=== PATIENT | male | born 1950 | race Caucasian/White ===

== ENCOUNTER 2018-04-01 20:37 | Emergency (ER) | payer OTHER, BC ==
[2018-04-01] MEDS ORDERED: NA CHLORIDE 0.9% 1,000 ML ONE (21:57)
[2018-04-01 22:24] LABS: Absolute Lymphocytes (CBC) 1.1 K/uL (0.7-4.9); Absolute Monocytes 1.5 K/uL (0.1-1.3); Absolute Neutrophil 12.2 K/uL (1.8-8.0); Basophils % 0.5 % (0-1.3); Hematocrit 47.2 % (39.6-49.0); Lymphocytes % 7.3 % (15.3-44.8); MCH 28.4 pg (27.0-35.0); MPV 8.5 fL (7.6-11.3); Monocytes % 9.9 % (3.3-12.3); RBC Red Blood Cell Count 5.48 M/uL (4.33-5.43)
[2018-04-01 22:31] LABS: Potassium 3.7 mEq/L (3.6-5.0)
--- NOTE | 2018-04-01 22:58 | RAD REPORT ---
EXAM DESCRIPTION: RAD - Ankle Right 3 View - 04/01/2018 10:47 pm CLINICAL HISTORY: Ankle pain and swelling. COMPARISON: 12/11/2015 FINDINGS: Evidence of previous ankle trauma is noted with fusion hardware present in the midfoot. So ft tissue swelling is seen about the ankle. Prominent posterior and plantar calcaneal spurs are seen. No acute fracture or hardware abnormality evident.
--- NOTE | 2018-04-01 23:09 | RAD REPORT ---
EXAM DESCRIPTION: VAS - Extremity Venous Uni Ltd - 04/01/2018 10:56 pm CLINICAL HISTORY: Leg swelling and edema. COMPARISON: None. FINDINGS: Right lower extremity venous system was interrogated with Doppler technique. Normal flow, compressibility and augmentation was noted. There is no DVT present. IMPRESSION: No evidence of right lower extremity deep venous thrombosis.
[2018-04-01 23:28] LABS: Urine Blood 1+ (NEG); Urine Glucose 2+ (NEG); Urine Protein TRACE (NEG); Urine pH 5.5 (5.0-7.0)
[2018-04-01] MEDS ORDERED: CIPROFLOXACIN 400mg IV 400 MG/200 ML BAG IV ONE (23:56)
--- NOTE | 2018-04-02 00:21 | EDPHYS ---
Physician Documentation [facility] Name: Jeff Sweeney Age: 67 yrs Sex: Male : 1950 Arrival Date: 04/01/2018 Time: 20:37 Bed 25 Private MD: ED Physician Qamar Sims HPI: 04/01 22:39 This 67 yrs old Male presents to ER via Ambulatory with complaints of Doesn't snw Feel Right. 22:39 The patient presents to the emergency department with diarrhea. Onset: The snw symptoms/episode began/occurred suddenly, 2 day(s) ago. Possible causes: unknown. The symptoms are aggravated by nothing. Associated signs and symptoms: Pertinent positives: diarrhea, swelling to right lower extremity. Severity of symptoms: At their worst the symptoms were moderate. The patient has not experienced similar symptoms in the past. The patient has not recently seen a physician, the patient's primary care provider is Dr. Dr. Vizcarra. pt states he has had diarrhea x 2 days with high fever. Spouse states pt's right lower extremity has been swelling and is more erythematous than is normal for him. Historical: - Allergies: 20:51 PENICILLINS; aj - Home Meds: 20:51 Lantus 100 unit/mL Sub-Q soln [Active]; Humalog 100 unit/mL Sub-Q soln [Active]; aj Synjardy 5-1,000 mg oral tab 1 tab 2 times per day [Active]; losartan-hydrochlorothiazide 100-25 mg oral tab 1 tab once daily [Active]; Bystolic 20 mg oral tab 1 tab once daily [Active]; - PMHx: 20:51 Diabetes - IDDM; Hypertension; aj - PSHx: 20:51 foot; aj - Immunization history:: Adult Immunizations up to date. - Social history:: Smoking status: Patient/guardian denies using tobacco. ROS: 22:39 Eyes: Negative for injury, pain, redness, and discharge, ENT: Negative for injury, snw pain, and discharge, Neck: Negative for injury, pain, and swelling, Cardiovascular: Negative for chest pain, palpitations, and edema, Respiratory: Negative for shortness of breath, cough, wheezing, and pleuritic chest pain. 22:39 Back: Negative for injury and pain, : Negative for injury, bleeding, discharge, and swelling, Neuro: Negative for headache, weakness, numbness, tingling, and seizure. 22:39 Constitutional: Positive for body aches, chills, fatigue, fever, malaise, poor PO intake. 22:39 Abdomen/GI: Positive for diarrhea. 22:39 MS/extremity: Positive for erythema, swelling, of the right foot, previous fracture of foot and fusing per pt. . 22:39 Skin: Positive for erythema, of the right foot. Exam: 22:44 Head/Face: Normocephalic, atraumatic. Eyes: Pupils equal round and reactive to light, snw extra-ocular motions intact. Lids and lashes normal. Conjunctiva and sclera are non-icteric and not injected. Cornea within normal limits. Periorbital areas with no swelling, redness, or edema. ENT: Nares patent. No nasal discharge, no septal abnormalities noted. Tympanic membranes are normal and external auditory canals are clear. Oropharynx with no redness, swelling, or masses, exudates, or evidence of obstruction, uvula midline. Mucous membranes moist. Neck: Trachea midline, no thyromegaly or masses palpated, and no cervical lymphadenopathy. Supple, full range of motion without nuchal rigidity, or vertebral point tenderness. No Meningismus. Chest/axilla: Normal chest wall appearance and motion. Nontender with no deformity. No lesions are appreciated. Cardiovascular: Regular rate and rhythm with a normal S1 and S2. No gallops, murmurs, or rubs. Normal PMI, no JVD. No pulse deficits. Respiratory: Lungs have equal breath sounds bilaterally, clear to auscultation and percussion. No rales, rhonchi or wheezes noted. No increased work of breathing, no retractions or nasal flaring. 22:44 Back: No spinal tenderness. No costovertebral tenderness. Full range of motion. Neuro: Awake and alert, GCS 15, oriented to person, place, time, and situation. Cranial nerves II-XII grossly intact. Motor strength 5/5 in all extremities. Sensory grossly intact. Cerebellar exam normal. Normal gait. Psych: Awake, alert, with orientation to person, place and time. Behavior, mood, and affect are within normal limits. 22:44 Constitutional: The patient appears alert, awake, uncomfortable. 22:44 Abdomen/GI: Inspection: obese Bowel sounds: normal, Palpation: abdomen is soft and non-tender, in all quadrants. 22:44 Musculoskeletal/extremity: Extremities: noted in the right foot: erythema, ROM: area fused, Circulation is intact in all extremities. diabetic neuropathy Compartment Syndrome exam of affected extremity: is normal. 22:44 Skin: Appearance: Color: normal in color, swelling, that are moderate, to right lower extremity, foot with erythema, peeling around medial callus, no obvious break in the skin. Vital Signs: 20:51 BP 156 / 87; Pulse 92; Resp 18; Temp 99.2; Pulse Ox 100% on R/A; Weight 111.13 kg; aj Height 6 ft. 0 in. (182.88 cm); Pain 2/10; 21:54 BP 133 / 89; Pulse 90; Resp 18; Pulse Ox 100% on R/A; kr2 23:00 BP 132 / 74; Pulse 85; Resp 18; Pulse Ox 98% on R/A; kr2 04/02 00:04 BP 145 / 67; Pulse 77; Resp 15; Pulse Ox 98% on R/A; kr2 01:04 BP 138 / 61; Pulse 78; Resp 17; Pulse Ox 99% on R/A; rk2 04/01 20:51 Body Mass Index 33.23 (111.13 kg, 182.88 cm) aj MDM: 04/01 21:55 Patient medically screened. snw 04/02 00:22 Data reviewed: vital signs, nurses notes. Data interpreted: Pulse oximetry: on room air snw is 98 %. Interpretation: normal. Counseling: I had a detailed discussion with the patient and/or guardian regarding: the historical points, exam findings, and any diagnostic results supporting the discharge/admit diagnosis, the presence of at least one elevated blood pressure reading (>120/80) during this emergency department visit, lab results, radiology results, the need for outpatient follow up, to return to the emergency department if symptoms worsen or persist or if there are any questions or concerns that arise at home. Special discussion: Based on the patient's Hx, exam, and Dx evaluation, there is no indication for emergent surgery or inpatient Tx. It is understood by the patient/guardian that if the Sx's persist or worsen they need to return immediately for re-evaluation. I have referred the patient to see his PCP for further evaluation of high blood pressure. Based on the history and exam findings, there is no indication for further emergent testing or inpatient evaluation. I discussed with the patient/guardian the need to see the primary care provider for further evaluation of the symptoms. 04/01 21:56 Order name: Lipase; Complete Time: 22:36 snw 04/01 21:56 Order name: Basic Metabolic Panel; Complete Time: 22:36 snw 04/01 21:56 Order name: CBC with Diff; Complete Time: 22:36 snw 04/01 21:56 Order name: Urine Microscopic Only; Complete Time: 00:39 snw 04/01 22:06 Order name: US Extremity Venous Uni Ltd; Complete Time: 23:13 snw 04/01 23:10 Order name: Urine Dipstick--Ancillary (enter results); Complete Time: 23:31 rg2 04/01 21:56 Order name: IV Saline Lock; Complete Time: 22:16 snw 04/01 21:56 Order name: Labs collected and sent; Complete Time: 22:17 snw 04/01 21:56 Order name: Urine Dipstick-Ancillary (obtain specimen); Complete Time: 23:09 snw 04/01 22:06 Order name: Ankle Right 3 View XRAY; Complete Time: 23:13 snw Administered Medications: Discontinued: NS 0.9% 1000 ml IV at 125 ml/hr continuous 04/01 22:16 Drug: NS 0.9% 1000 ml Route: IV; Rate: 125 ml/hr; Site: right forearm; kr2 04/02 00:30 Follow up: IV Status: Order to discontinue infusion kr2 01:05 Follow up: Response: No adverse reaction; IV Status: Completed infusion rk2 00:01 Drug: NS 0.9% 1000 ml Route: IV; Rate: 1 bolus; Site: right antecubital; kr2 01:05 Follow up: IV Status: Completed infusion rk2 00:01 Drug: Cipro 400 mg Volume: 200 ml; Route: IVPB; Infused Over: 60 mins; Site: right kr2 antecubital; 01:04 Follow up: Response: No adverse reaction; IV Status: Completed infusion rk2 Disposition: 08:18 Co-signature as Attending Physician, Qamar Sims MD I agree with the assessment and musa plan of care. Disposition: 04/02/18 00:20 Discharged to Home. Impression: Diarrhea, unspecified, Cellulitis of right lower limb. - Condition is Stable. - Discharge Instructions: Food Choices to Help Relieve Diarrhea, Adult, Cellulitis, Diabetes and Sick Day Management, Diarrhea, Heat Therapy. - Prescriptions for Cipro 500 mg Oral Tablet - take 1 tablet by ORAL route every 12 hours for 10 days; 20 tablet. Zofran 4 mg Oral Tablet - take 1 tablet by ORAL route every 8 hours As needed; 20 tablet. - Medication Reconciliation Form, Thank You Letter, Antibiotic Education, Prescription Opioid Use form. - Follow up: Private Physician; When: Tomorrow; Reason: Recheck today's complaints, Continuance of care, Re-evaluation by your physician. Follow up: Emergency Department; When: As needed; Reason: Worsening of condition. Signatures: Dispatcher [employer] EDAliza Blum, RN RN Qamar Lance MD MD cha Therrien, Shelly, SEMICONDUCTOR WAFERS ETCH OPERATOR-C SEMICONDUCTOR WAFERS ETCH OPERATOR-Csnw Jennifer Kirkpatrick RN RN kr2 Deb Melgar RN RN rk2 Corrections: (The following items were deleted from the chart) 01:07 00:20 04/02/2018 00:20 Discharged to Home. Impression: Diarrhea, unspecified; rk2 Cellulitis of right lower limb. Condition is Stable. Forms are Medication Reconciliation Form, Thank You Letter, Antibiotic Education, Prescription Opioid Use. Follow up: Private Physician; When: Tomorrow; Reason: Recheck today's complaints, Continuance of care, Re-evaluation by your physician. Follow up: Emergency Department; When: As needed; Reason: Worsening of condition. snw
--- NOTE | 2018-04-02 00:21 | ER ---
Nurse's Notes [facility] Name: Jeff Sweeney Age: 67 yrs Sex: Male : 1950 Arrival Date: 04/01/2018 Time: 20:37 Bed 25 Private MD: Diagnosis: Diarrhea, unspecified;Cellulitis of right lower limb Presentation: 04/01 20:47 Presenting complaint: Patient states: Fatigue, fever, diarrhea (resolved), body aches aj for 2 days. Transition of care: patient was not received from another setting of care. Onset of symptoms was March 30, 2018. Initial Sepsis Screen: Does the patient meet any 2 criteria? No. Patient's initial sepsis screen is negative. Does the patient have a suspected source of infection? No. Patient's initial sepsis screen is negative. Care prior to arrival: None. 20:47 Method Of Arrival: Ambulatory aj 20:47 Acuity: LAUREN 3 aj Triage Assessment: 20:51 General: Appears in no apparent distress. comfortable, Behavior is calm, cooperative, aj appropriate for age. Pain: Complains of pain in body aches Pain currently is 1 out of 10 on a pain scale. Neuro: Level of Consciousness is awake, alert, obeys commands, Oriented to person, place, time, situation. Neuro:. Respiratory: Airway is patent Respiratory effort is even, unlabored, Respiratory pattern is regular, symmetrical. Derm: Skin is intact, is healthy with good turgor, Skin is pink, warm \T\ dry. normal. Historical: - Allergies: 20:51 PENICILLINS; aj - Home Meds: 20:51 Lantus 100 unit/mL Sub-Q soln [Active]; Humalog 100 unit/mL Sub-Q soln [Active]; aj Synjardy 5-1,000 mg oral tab 1 tab 2 times per day [Active]; losartan-hydrochlorothiazide 100-25 mg oral tab 1 tab once daily [Active]; Bystolic 20 mg oral tab 1 tab once daily [Active]; - PMHx: 20:51 Diabetes - IDDM; Hypertension; aj - PSHx: 20:51 foot; aj - Immunization history:: Adult Immunizations up to date. - Social history:: Smoking status: Patient/guardian denies using tobacco. Screenin:56 Abuse screen: Denies threats or abuse. Denies injuries from another. Nutritional kr2 screening: No deficits noted. Tuberculosis screening: No symptoms or risk factors identified. Fall Risk None identified. Assessment: 21:54 General: Appears in no apparent distress. comfortable, Behavior is calm, cooperative, kr2 appropriate for age. Pain: Denies pain. Neuro: Level of Consciousness is awake, alert, obeys commands, Oriented to person, place, time, situation. Neuro: Reports. Cardiovascular: Capillary refill < 3 seconds in bilateral fingers Patient's skin is warm and dry. Respiratory: Airway is patent Respiratory effort is even, unlabored, Respiratory pattern is regular, symmetrical. GI: Abdomen is round non-distended, Reports diarrhea, nausea. : No signs and/or symptoms were reported regarding the genitourinary system. EENT: Nares are clear bilaterally Oral mucosa is moist. Derm: Skin is intact, is healthy with good turgor, Skin is pink, warm \T\ dry. Musculoskeletal: Circulation, motion, and sensation intact. Reports leg cramps-taking HCTZ. 23:00 Reassessment: Patient appears in no apparent distress at this time. Patient and/or kr2 family updated on plan of care and expected duration. Pain level reassessed. Patient is alert, oriented x 3, equal unlabored respirations, skin warm/dry/pink. Patient denies pain at this time. 04/02 00:06 Reassessment: Patient appears in no apparent distress at this time. Patient and/or kr2 family updated on plan of care and expected duration. Pain level reassessed. Patient is alert, oriented x 3, equal unlabored respirations, skin warm/dry/pink. Patient denies pain at this time. Vital Signs: 04/01 20:51 BP 156 / 87; Pulse 92; Resp 18; Temp 99.2; Pulse Ox 100% on R/A; Weight 111.13 kg; aj Height 6 ft. 0 in. (182.88 cm); Pain 2/10; 21:54 BP 133 / 89; Pulse 90; Resp 18; Pulse Ox 100% on R/A; kr2 23:00 BP 132 / 74; Pulse 85; Resp 18; Pulse Ox 98% on R/A; kr2 04/02 00:04 BP 145 / 67; Pulse 77; Resp 15; Pulse Ox 98% on R/A; kr2 01:04 BP 138 / 61; Pulse 78; Resp 17; Pulse Ox 99% on R/A; rk2 04/01 20:51 Body Mass Index 33.23 (111.13 kg, 182.88 cm) ED Course: 04/01 20:37 Patient arrived in ED. am2 20:48 Triage completed. aj 20:51 Arm band placed on right wrist. Patient placed in waiting room, Patient notified of wait time. 21:38 Jennifer Kirkpatrick RN is Primary Nurse. kr2 21:55 Ashlyn Bates FNP-C is PHCP. snw 21:55 Qamar Sims MD is Attending Physician. snw 21:56 Patient has correct armband on for positive identification. Bed in low position. Call kr2 light in reach. Side rails up X 1. Adult w/ patient. Pulse ox on. NIBP on. Door closed. Head of bed elevated. 22:05 Inserted saline lock: 22 gauge in right forearm, using aseptic technique. Blood kr2 collected. 22:43 X-ray completed. Portable x-ray completed in exam room. Patient tolerated procedure kc2 well. 22:46 Ankle Right 3 View XRAY In Process Unspecified. EDMS 22:57 US Extremity Venous Uni Ltd In Process Unspecified. EDMS 22:57 Ultrasound completed. Patient tolerated well. 04/02 00:59 Primary Nurse role handed off by Jennifer Kirkpatrick, RN rg2 01:06 No provider procedures requiring assistance completed. IV discontinued. rk2 Administered Medications: Discontinued: NS 0.9% 1000 ml IV at 125 ml/hr continuous 04/01 22:16 Drug: NS 0.9% 1000 ml Route: IV; Rate: 125 ml/hr; Site: right forearm; kr2 04/02 00:30 Follow up: IV Status: Order to discontinue infusion kr2 01:05 Follow up: Response: No adverse reaction; IV Status: Completed infusion rk2 00:01 Drug: NS 0.9% 1000 ml Route: IV; Rate: 1 bolus; Site: right antecubital; kr2 01:05 Follow up: IV Status: Completed infusion rk2 00:01 Drug: Cipro 400 mg Volume: 200 ml; Route: IVPB; Infused Over: 60 mins; Site: right kr2 antecubital; 01:04 Follow up: Response: No adverse reaction; IV Status: Completed infusion rk2 Outcome: 00:20 Discharge ordered by MD. villatoro 01:06 Discharged to home ambulatory. rk2 01:06 Condition: good 01:06 Discharge instructions given to patient, Prescriptions given X 2. 01:07 Patient left the ED. rk2 Signatures: Dispatcher [employer] EDMS Damien Blake rg2 Aliza Mazariegos, RN RN Ashlyn Odom, AQUATIC PERFORMER-C AQUATIC PERFORMER-Csnw Nathaly Mccarthy kc2 Aliza Valenzuela am2 Jennifer Kirkpatrick, RN RN kr2 Kristin Liu Rhonda RN RN rk2
[2018-04-02 00:28] LABS: Urine Bacteria <20 /HPF (NONE SEEN); Urine Culture Reflex Order NOT NEEDED
[2018-04-02 00:29] LABS: Urine Coarse Granular Casts 0-5 /LPF (NONE SEEN); Urine RBC <5 /HPF (NONE SEEN)
== END 2018-04-02 01:07 | disposition home or self-care (01) ==
LOC: ER 20:37
DX: L03.115 Cellulitis of right lower limb (principal); R19.7 Diarrhea, unspecified; E11.9 Type 2 diabetes mellitus without complications; I10 Essential (primary) hypertension; Z79.4 Long term (current) use of insulin
CPT/HCPCS: 36415; 80048; 81003; 81015; 83690; 85025; 93971; 96361; 96365; 99284; J0744; J7030

== ENCOUNTER 2018-04-02 13:39 | Inpatient (IN) | payer OTHER, BC ==
--- OUTSIDE RECORDS SUMMARY | 2018-04-02 14:01 | XMS REPORT | Clinical Summary ---
:1950 Author Organization [facility] Address [address] [place] [address] Care Team Providers Name Role Phone Jaime Gotti Primary Care Provider Allergies Active Allergy Reactions Severity Noted Date Comments Penicillins Hives 04/25/2016 Current Medications Prescription Sig. Disp. Refills Start End Status Date Date HUMALOG KWIKPEN 100 INJECT 8 UNITS 3 07/05/20 Active unit/mL insulin pen TID BY 16 SUBCUTANEOUS ROUTE BEFORE MEALS TID FOR 90 DAYS nebivolol (BYSTOLIC) 20 Take 20 mg by 04/16/20 Active mg tablet mouth nightly. 17 empagliflozin-metformin Take 1 tablet by 04/09/20 Active (SYNJARDY) 5-1,000 mg mouth 2 (two) 17 tablet times a day with meals. DOCOSAHEXANOIC ACID/EPA Take by mouth. Active (FISH OIL ORAL) ascorbic acid, vitamin Take 1,000 mg by Active C, (vitamin C) 1000 MG mouth daily. tablet cholecalciferol, Take 2,000 Units Active vitamin D3, (VITAMIN by mouth daily. D3) 2,000 unit capsule capsule aspirin (ECOTRIN) 81 MG Take 81 mg by Active enteric coated tablet mouth daily. LANTUS SOLOSTAR 100 INJECT 24 UNITS 45 mL 3 06/30/20 Active unit/mL injection (pen) EVERY DAY BY 17 SUBCUTANEOUS ROUTE EVERY NIGHT AT BEDTIME FOR 90 DAYS HUMALOG KWIKPEN 100 INJECT 16 UNITS 45 mL 0 09/06/20 Active unit/mL injection pen THREE TIMES 17 DAILY BY SUBCUTANEOUS ROUTE BEFORE MEALS FOR 90 DAYS losartan (COZAAR) 100 TAKE 1 TABLET BY 90 tablet 0 09/06/20 Active MG tablet MOUTH EVERY DAY 17 IN THE MORNING losartan (COZAAR) 100 TAKE 1 TABLET BY 90 tablet 0 09/06/20 Active MG tablet MOUTH EVERY DAY 17 IN THE MORNING hydroCHLOROthiazide TAKE 1 TABLET BY 90 tablet 0 09/08/20 Active (HYDRODIURIL) 25 MG MOUTH EVERY DAY 17 tablet IN THE MORNING atenolol (TENORMIN) 50 TK 1 T PO QAM 2 08/02/20 Discontinued MG tablet 16 017 losartan (COZAAR) 100 TK 1 T PO QD IN 2 09/05/20 Discontinued MG tablet THE MORNING 16 017 LANTUS SOLOSTAR 100 INJECT 24 UNITS 3 09/03/20 Discontinued unit/mL (3 mL) insulin QD BY 16 017 pen SUBCUTANEOUS ROUTE QHS FOR 90 DAYS metFORMIN XR TK 2 TS PO BID 3 08/02/20 Discontinued (GLUCOPHATE-XR) 500 MG WC 16 017 24 hr tablet BYDUREON 2 mg INJECT 2 MG Q 3 08/02/20 Discontinued suspension,extended rel WEEK BY 16 017 recon SUBCUTANEOUS ROUTE IN THE MORNING FOR 91 DAYS hydrochlorothiazide TK 1 T PO QD IN 3 08/02/20 Discontinued (HYDRODIURIL) 25 MG THE MORNING 16 017 tablet hydroCHLOROthiazide Take 1 tablet by 02/17/20 Discontinued (HYDRODIURIL) 25 MG mouth daily. 17 017 tablet insulin GLARGINE Inject 26 Units 02/26/20 Discontinued (LANTUS SOLOSTAR) 100 under the skin 17 017 unit/mL injection (pen) nightly. losartan (COZAAR) 100 Take 1 tablet by 02/18/20 Discontinued MG tablet mouth daily. 17 017 losartan (COZAAR) 100 TAKE 1 TABLET BY 90 tablet 0 05/30/20 Discontinued MG tablet MOUTH EVERY DAY 17 017 IN THE MORNING bacitracin ointment Apply topically 28 g 0 06/03/20 Discontinued 2 (two) times a 17 017 day for 30 days. clindamycin (CLEOCIN) Take 1 capsule 15 capsule 0 06/03/20 Discontinued 300 MG capsule (300 mg total) 17 017 by mouth 3 (three) times a day for 5 days. keTOROlac (TORadol) 10 Take 1 tablet 20 tablet 0 06/03/20 Discontinued mg tablet (10 mg total) by 17 017 mouth every 6 (six) hours as needed for moderate pain for up to 4 days. acetaminophen-codeine Take 1 tablet by 30 tablet 0 06/03/20 Discontinued (TYLENOL WITH CODEINE mouth every 4 17 017 #3) 300-30 mg per (four) hours as tablet needed for moderate pain for up to 10 days. clindamycin (CLEOCIN) Take 1 capsule 15 capsule 0 06/03/20 300 MG capsule (300 mg total) 17 017 by mouth 3 (three) times a day for 5 days. acetaminophen-codeine Take 1 tablet by 30 tablet 0 06/03/20 (TYLENOL WITH CODEINE mouth every 4 17 017 #3) 300-30 mg per (four) hours as tablet needed for moderate pain for up to 10 days. keTOROlac (TORadol) 10 Take 1 tablet 20 tablet 0 06/03/20 mg tablet (10 mg total) by 17 017 mouth every 6 (six) hours as needed for moderate pain for up to 4 days. bacitracin ointment Apply topically 28 g 0 06/03/20 2 (two) times a 17 017 day for 30 days. clindamycin (CLEOCIN) Take 1 capsule 15 capsule 0 06/30/20 300 MG capsule (300 mg total) 17 017 by mouth 3 (three) times a day for 5 days. acetaminophen-codeine Take 1 tablet by 28 tablet 0 06/30/20 (TYLENOL WITH CODEINE mouth every 6 17 017 #3) 300-30 mg per (six) hours as tablet needed for moderate pain for up to 7 days. sodium chloride (OCEAN 2 sprays into 30 mL 0 06/30/20 NASAL) 0.65 % nasal each nostril 4 17 017 spray (four) times a day for 7 days. 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 Night sweats 09/18/2016 Encounters Date Type Specialty Care Team Description 09/10/2017 Documentation Endocrinology Wilma Valenzuela MA 09/10/2017 Orders Only Endocrinology Wilma Valenzuela MA 09/06/2017 Refill Ghulam Mora MD 09/05/2017 Refill Ghulam Mora MD 09/01/2017 Refill Ghulam Mora MD 08/30/2017 Refill Ghulam Mora MD 08/12/2017 Refill Ghulam Mora MD 06/30/2017 Hospital Encounter Plastic Surgery Maria Elena Manzo Basal cell MD Ivan carcinoma 06/30/2017 Anesthesia Event Plastic Surgery Zeus Yang MD 06/30/2017 Refill Ghulam Mora MD 06/30/2017 Procedure Pass Plastic Surgery 06/30/2017 Surgery Plastic Surgery Maria Elena Manzo COMPLEX WOUND MD Ivan CLOSURE, TAKEDOWN OF PERIMEDIAN FOREHEAD FLAP; division of septal flap 2017 Patient Outreach Quality Savana Merritt PharmD 06/02/2017 - Hospital Encounter General Internal Maria Elena Manzo Basal cell 06/03/2017 Medicine MD Ivan carcinoma 06/02/2017 Anesthesia Event Plastic Surgery Zeus Yang MD 06/02/2017 Procedure Pass Plastic Surgery 06/02/2017 Surgery Plastic Surgery Maira Elena Manzo NASAL SEPTAL FLAPIvan MD PERIMEDIAN FOREHEAD FLAP 05/30/2017 Refill Ghulam Mora MD 04/25/2017 Anesthesia Event Pre-Admission Testing Saw Negron APRN after 04/01/2017 Immunizations Name Dates Previously Given Next Due FLUCELVAX QUAD PF (0.5mL syringe) 09/18/2016 (Deferred: Other) Family History Medical History Relation Name Comments Heart failure Father Relation Name Status Comments Father Social History Tobacco Use Types Packs/Day Years Used Date Never Smoker Smokeless Tobacco: Never Used Alcohol Use Drinks/Week oz/Week Comments Yes 2 Glasses of wine 1.2 Occasional Sex Assigned at Date Recorded Not on file Last Filed Vital Signs Vital Sign Reading Time Taken Blood Pressure 180/87 06/30/2017 12:04 PM CDT Pulse 80 06/30/2017 12:04 PM CDT Temperature 36.3 C (97.4 F) 06/30/2017 12:04 PM CDT Respiratory Rate 16 06/30/2017 12:04 PM CDT Oxygen Saturation 94% 06/30/2017 12:04 PM CDT Inhaled Oxygen Concentration - - Weight 111 kg (243 lb 12.8 oz) 06/30/2017 7:19 AM CDT Height 180.3 cm (5' 11") 06/02/2017 7:12 AM CDT Body Mass Index 34 06/30/2017 7:19 AM CDT Plan of Treatment Health Maintenance Due Date Last Done Comments COLONOSCOPY 1998 SHINGRIX VACCINE (#1) 1998 ZOSTER VACCINE 2008 PNEUMOCOCCAL POLYSACCHARIDE VACCINE AGE 65 AND OVER 2013 PNEUMOCOCCAL-13 2013 INFLUENZA VACCINE 07/01/2018 09/18/2016 Procedures Procedure Name Priority Date/Time Associated Diagnosis Comments DE AN ELECTIVE Routine 06/30/2017 8:03 AM ENDOTRACHEAL AIRWAY CDT Procedure Note - Callie Richard CRNA - 06/30/2017 8:01 AM CDT Airway Date/Time: 06/30/2017 7:40 AM Performed by: CALLIE RICHARD I Authorized by: ZEUS YANG Location: OR Urgency: Elective Performed by: resident/REGISTERED RADIOLOGIC TECHNOLOGIST and anesthesiologist Preoxygenated with 100% O2: Yes Mask Ventilation: Assisted mask Final Airway Type: Endotracheal airway Final Endotracheal Airway: ETT Cuffed: Yes Technique Used: Direct laryngoscopy Devices/Methods Used in Placement: Intubating stylet Blade Type: De Leon Laryngoscope Blade/Videolaryngoscope Blade Size: 2 ETT Size (mm): 7.0 Measured from: Teeth ETT to Teeth (cm): 24 Placement Verified by: CO2 detection and direct visualization Laryngoscopic view: Grade IIb - view of arytenoids or posterior of glottis only Number of Attempts at Approach: 2 First attempt Mac 3, Atraumatic, dentition unchanged COMPLEX WOUND CLOSURE, 06/30/2017 7:30 AM CDT Basal cell carcinoma TAKEDOWN OF PERIMEDIAN FOREHEAD FLAP; division of septal flap DE AN ELECTIVE ENDOTRACHEAL Routine 06/02/2017 8:58 AM CDT AIRWAY Procedure Note - Jackie Sweet REGISTERED RADIOLOGIC TECHNOLOGIST - 06/02/2017 8:57 AM CDT Airway Date/Time: 06/02/2017 8:29 AM Performed by: JACKIE SWEET Authorized by: ZEUS YANG Location: OR Urgency: Elective Anesthesiologist: ZEUS YANG Resident/REGISTERED RADIOLOGIC TECHNOLOGIST: JACKIE SWEET Preoxygenated with 100% O2: Yes C-spine Precautions Maintained Throughout: Yes Mask Ventilation: Easy mask Final Airway Type: Endotracheal airway Final Endotracheal Airway: ETT and reinforced tube Cuffed: Yes Technique Used: Direct laryngoscopy Devices/Methods Used in Placement: Intubating stylet Insertion Site: Oral Blade Type: De Leon Laryngoscope Blade/Videolaryngoscope Blade Size: 2 ETT Size (mm): 7.0 Measured from: Lips ETT to Lips (cm): 23 Placement Verified by: CO2 detection, direct visualization and equal breath sounds Laryngoscopic view: Grade I - full view of glottis Rapid Sequence Induction (RSI): No Modified RSI: No Number of Attempts at Approach: 1 PARTIAL RHINECTOMY 06/02/2017 8:00 AM CDT Basal cell carcinoma Case Notes POSSIBLE EXTENDED RECOVERY NEEDED, DR MITCHELL CO SURGEON (WORKING 1ST EST 1.5HR) Special Needs POSSIBLE EXTENDED RECOVERY NEEDED, DR MITCHELL CO SURGEON (WORKING 1ST EST 1.5HR) NASAL SEPTAL FLAP, PERIMEDIAN 06/02/2017 8:00 AM CDT Basal cell carcinoma FOREHEAD FLAP Case Notes POSSIBLE EXTENDED RECOVERY NEEDED, DR STEPHEN CUMMINGS SURGEON (WORKING 1ST EST 1.5HR) Special Needs POSSIBLE EXTENDED RECOVERY NEEDED, DR MITCHELL CO SURGEON (WORKING 1ST EST 1.5HR) after 04/01/2017 Results POC glucose (06/30/2017 10:27 AM)Only the most recent of9 resultswithin the time period is included. Component Value Ref Range POC glucose 173 (H) 65 - 99 mg/dL Comment: Meter ID: [id number] Explosive Ordnance Technician: Flavio Arnold Specimen Performing Laboratory [facility] DEPARTMENT OF PATHOLOGY AND GENOMIC MEDICINE [address] [place] [id number] Surgical pathology request (06/02/2017 9:18 AM) Component Value Ref Range Surgical pathology report See link below for PDF Lab Report Specimen Performing Laboratory [facility] DEPARTMENT OF PATHOLOGY AND GENOMIC MEDICINE [address] [place] [id number] ECG Pre/Post Op (04/25/2017 1:54 PM) Component Value Ref Range Ventricular rate 70 Atrial rate 70 DE interval 192 QRSD interval 110 QT interval 440 QTC interval 475 P axis 1 41 QRS axis 1 -1 T wave axis 47 EKG impression Normal sinus rhythm-Normal ECG-No previous ECGs available- Specimen Performing Laboratory [facility] MUSE [address] [place] [id number] Estimated GFR (04/25/2017 1:38 PM) Component Value Ref Range GFR Non Af Amer 60 mL/min/1.73 m2 GFR Af Amer 73 mL/min/1.73 m2 Comment: Chronic kidney disease: <60 mL/min/1.73m2 Kidney failure: <15 mL/min/1.73m2 The estimated GFR is calculated from the IDMS-traceable Modification of Diet in Renal Disease Equation. The accuracy of the calculation is poor when the creatinine is normal. Calculated values >90 mL/min/1.73m2 are not reported. This equation has not been validated in children (<18 years), women, the elderly (>70 years), or ethnic groups other than Caucasians and Americans. Specimen Performing Laboratory Plasma specimen [facility] DEPARTMENT OF PATHOLOGY AND GENOMIC MEDICINE [address] [place] [id number] CBC with platelet and differential (04/25/2017 1:38 PM) Component Value Ref Range WBC 7.08 4.50 - 11.00 k/uL RBC 5.52 4.40 - 6.00 m/uL HGB 16.0 14.0 - 18.0 g/dL HCT 48.6 41.0 - 51.0 % MCV 88.0 82.0 - 100.0 fL MCH 29.0 27.0 - 34.0 pg MCHC 32.9 31.0 - 37.0 g/dL RDW - SD 44.9 37.0 - 55.0 fL MPV 10.0 8.8 - 13.2 fL Platelet count 166 150 - 400 k/uL Nucleated RBC 0.00 /100 WBC Neutrophils 56.3 39.0 - 69.0 % Lymphocytes 34.3 25.0 - 45.0 % Monocytes 7.1 0.0 - 10.0 % Eosinophils 1.6 0.0 - 5.0 % Basophils 0.6 0.0 - 1.0 % Immature granulocytes 0.1Comment: "Immature granulocytes" 0.0 - 1.0 % (promyelocytes, myelocytes, metamyelocytes) Specimen Performing Laboratory Blood [facility] DEPARTMENT OF PATHOLOGY AND GENOMIC MEDICINE [address] [place] [id number] Hemoglobin A1c (04/25/2017 1:38 PM) Component Value Ref Range Hemoglobin A1C 7.5 (H) 4.0 - 5.6 % Comment: HbA1c cutoffs for diagnosing diabetes: 4.0% - 5.6%=normal 5.7% - 6.4%=increased risk for diabetes (prediabetes) >=6.5%=diabetes Goals for glycemic control (ADA 2016) < 7.0%Target for non adults with diabetes. More or less stringent targets may be appropriate for individual patients. <7.5% Target for Children and adolescents with type 1 diabetes. Specimen Performing Laboratory Blood [facility] DEPARTMENT OF PATHOLOGY AND GENOMIC MEDICINE [address] [place] [id number] Basic metabolic panel (04/25/2017 1:38 PM) Component Value Ref Range Sodium 143 135 - 148 mEq/L Potassium 4.5 3.5 - 5.0 mEq/L Chloride 100 98 - 112 mEq/L CO2 28 24 - 31 mEq/L Anion gap 15 7 - 15 mEq/L Comment: Starting from March , anion gap calculation no longer incorporates potassium. Please note the change. BUN 26 (H) 8 - 23 mg/dL Creatinine 1.2 0.7 - 1.2 mg/dL Glucose 134 (H) 65 - 99 mg/dL Calcium 9.0 8.8 - 10.2 mg/dL Specimen Performing Laboratory Plasma specimen [facility] DEPARTMENT OF PATHOLOGY AND GENOMIC MEDICINE [address] [place] [id number] after 04/01/2017 Insurance Payer Benefit Plan / Group Subscriber ID Type Phone Address MEDICARE MEDICARE PART A AND B xxxxxxxxxx Medicare [place], [place] BCBS BCBS CHOICE PPO/[employer] PPO xxxxxxxxxxxx PPO [phone] [place] [address] JEFF SWEENEY Personal/Family Self 1950 Home: [address] [phone] [place] [place] [address]
[2018-04-02] MEDS ORDERED: POLYETHYL GLY 3350 17 GM/DOSE PO PRN (14:31)
[2018-04-02] MEDS ORDERED: ONDANSETRON 4 MG (ODT) TAB PO PRN (14:31)
[2018-04-02] MEDS ORDERED: DIPHENHYDRAMINE 25 MG TAB/CAP PO PRN (14:31)
[2018-04-02] MEDS ORDERED: ONDANSETRON 4 MG/2 ML VIAL IV PRN (14:31)
[2018-04-02] MEDS ORDERED: LOPERAMIDE HCL 2 MG CAPSULE PO PRN (14:31)
[2018-04-02] MEDS ORDERED: ACETAMINOPHEN 325 MG TABLET PO PRN (14:31)
[2018-04-02] MEDS ORDERED: NACHLORIDE 0.45% 1,000 ML IV SCH (15:00)
[2018-04-02] MEDS ORDERED: PNEUMOCOCCAL VACCINE 0.5 ML IMVAC ONE (15:00)
[2018-04-02 15:21] LABS: Absolute Lymphocytes (CBC) 1.1 K/uL (0.7-4.9); Absolute Monocytes 1.5 K/uL (0.1-1.3); Basophils % 0.4 % (0-1.3); Eosinophils % 0.1 % (0-4.4); Hematocrit 42.9 % (39.6-49.0); Lymphocytes % 8.8 % (15.3-44.8); MCH 28.7 pg (27.0-35.0); MCV 86.3 fL (80-100); MPV 8.2 fL (7.6-11.3); Monocytes % 11.8 % (3.3-12.3); RBC Red Blood Cell Count 4.97 M/uL (4.33-5.43)
--- NOTE | 2018-04-02 15:34 | RAD REPORT ---
EXAM DESCRIPTION: RAD - Chest Pa And Lat (2 Views) - 04/02/2018 3:27 pm CLINICAL HISTORY: Cellulitis, diabetic neuropathy, shortness of breath COMPARISON: None. TECHNIQUE: PA and lateral views of the chest were obtained. FINDINGS: The lungs are clear of an acute infiltrate, mass or failure finding. Trachea is midline. Heart size is normal and central vasculature is within normal limits. No pleural effusion or pneumo thorax seen. Disc and bony degenerative changes are present. There is slight wedging of several vert ebrae near the thoracolumbar junction. No blastic, lytic or expansile component. No aortic abnormalit y. IMPRESSION: No failure, infiltrate or acute cardiopulmonary finding. Degenerative changes throughout the thoracic spine. Mild wedge compression of multiple vertebrae near the thoracolumbar junction is probably chronic.
[2018-04-02 15:38] LABS: Protime INR 1.12
[2018-04-02 15:54] LABS: Potassium 3.7 mEq/L (3.6-5.0)
[2018-04-02 16:00] LABS: Albumin 3.2 g/dL (3.2-5.5); Bilirubin Direct 0.3 mg/dL (0-0.2); Bilirubin Total 1.2 mg/dL (0.3-1.2); Magnesium 2.1 mg/dL (1.8-2.5); Phosphorus 2.8 mg/dL (2.5-4.3); Protein, Total 6.4 g/dL (6.0-8.3)
[2018-04-02 16:25] LABS: A1c Component 0.82 mg/dL; Hemoglobin A1c 7.2 % (4-6.0)
[2018-04-02 16:33] LABS: Thyroid Stimulating Hormone 1.61 uIU/mL (0.34-5.60)
[2018-04-02] MEDS: VANCOMYCIN/NS 1 gm 1 GM/250 ML BAG IV SCH (16:44)
[2018-04-02] MEDS: ENOXAPARIN 40 MG/0.4 ML SQ SCH (16:50)
[2018-04-02 18:01] LABS: Urine Appearance CLEAR; Urine Bilirubin NEGATIVE (NEG); Urine Blood NEGATIVE (NEG); Urine Color YELLOW; Urine Glucose 3+ (NEG); Urine Protein NEGATIVE (NEG); Urine Specific Gravity >=1.030 (1.005-1.030); Urine Urobilinogen 0.2 mg/dL (0.2-1.0)
[2018-04-02] MEDS ORDERED: D50W 25 GM/50 ML SYRINGE IV PRN ×2 (18:11→20:57)
[2018-04-02] MEDS ORDERED: GLUCAGON 1 MG/VIAL IM PRN ×2 (18:11→20:57)
[2018-04-02 18:14] LABS: UR CREAT 74.3 mg/dL; UR MICROALBUMIN 1.9 mg/dL (< 1.9)
[2018-04-02 18:16] LABS: Urine Microscopic Reflex NO UMIC
[2018-04-02] MEDS: EMPAGLIFLOZIN PO SCH (21:00)
[2018-04-02] MEDS: METFORMIN HCL PO SCH (21:00)
[2018-04-02] MEDS ORDERED: INSULIN GLARGINE HUM REC ANLOG SQ SCH (21:00)
[2018-04-02] MEDS: INSULIN -REGULAR HUMAN 50 UNIT/0.5 ML ML SQ SCH (21:00)
[2018-04-03] MEDS: VANCOMYCIN/NS 1 gm 1 GM/250 ML BAG IV SCH (05:14)
--- NOTE | 2018-04-03 06:46 | EKG ---
Test Date: 2018-04-02 Test Time: 15:04:12 Spanish Professor: FRANCY MEASUREMENT RESULTS: Intervals: Rate: 84 [place]: 184 QRSD: 156 QT: 448 QTc: 529 [place]: P: 37 [place]: 184 QRS: -2 T: -6 INTERPRETIVE STATEMENTS: Sinus rhythm with fusion complexes Right bundle branch block Abnormal ECG No previous ECG available for comparison Electronically Signed On 04-03-18 06:45:37 CDT by Remy Goldstein
[2018-04-03 07:24] LABS: Magnesium 2.3 mg/dL (1.8-2.5); Potassium 3.9 mEq/L (3.6-5.0)
[2018-04-03 07:27] LABS: Absolute Lymphocytes (CBC) 1.7 K/uL (0.7-4.9); Absolute Monocytes 1.2 K/uL (0.1-1.3); Absolute Neutrophil 6.5 K/uL (1.8-8.0); Basophils % 0.5 % (0-1.3); Eosinophils % 0.7 % (0-4.4); Hematocrit 43.7 % (39.6-49.0); Lymphocytes % 17.5 % (15.3-44.8); MCH 29.1 pg (27.0-35.0); MPV 8.4 fL (7.6-11.3); Monocytes % 12.9 % (3.3-12.3); RBC Red Blood Cell Count 5.03 M/uL (4.33-5.43)
[2018-04-03] MEDS: INSULIN -REGULAR HUMAN 50 UNIT/0.5 ML ML SQ SCH ×3 (07:30→16:30)
[2018-04-03] MEDS ORDERED: LOSARTAN PO SCH (09:00)
[2018-04-03] MEDS ORDERED: HYDROCHLOROTHIAZIDE PO SCH (09:00)
[2018-04-03] MEDS ORDERED: NEBIVOLOL HCL 5 MG TAB PO SCH (09:00)
[2018-04-03] MEDS ORDERED: FLUTICASONE IH SCH (09:00)
[2018-04-03] MEDS ORDERED: ASPIRIN EC 81 MG TAB PO SCH ×2 (09:00)
[2018-04-03] MEDS ORDERED: NEBIVOLOL HCL 20 MG TABLET PO SCH ×2 (09:00)
[2018-04-03] MEDS: Insulin Lispro [Humalog Kwikpen U-100] SQ SCH ×3 (09:03→18:03)
[2018-04-03] MEDS: METFORMIN HCL PO SCH (09:05)
[2018-04-03] MEDS: EMPAGLIFLOZIN PO SCH (09:05)
--- NOTE | 2018-04-03 09:10 | RAD REPORT ---
EXAM DESCRIPTION: MRI - Foot Right Wo Cont - 04/02/2018 10:32 pm CLINICAL HISTORY: Right foot pain and swelling. COMPARISON: Ankle x-ray April 01, 2018 TECHNIQUE: Axial, sagittal, and coronal magnetic images of the right foot was obtained. FINDINGS: Screws fuse the hindfoot, midfoot and forefoot. Extensive artifact from the screws result in severe artifact. The calcaneus demonstrates normal signal. Most of the middle and distal phalanges demonstrate normal signal. The evaluation of the remainder of the bones is nondiagnostic. IMPRESSION: Screws fuse most of the foot. Extensive artifact markedly limits the examination. No michell ss evidence of osteomyelitis involves the calcaneus, middle and distal phalanges. Further evaluation with CT may be helpful in an attempt to diagnose osteomyelitis
[2018-04-03] MEDS: ENOXAPARIN 40 MG/0.4 ML SQ SCH (09:53)
--- NOTE | 2018-04-03 13:56 | P.DS ---
Admission Date: 04/02/18 Discharge Date: 04/03/18 Disposition: ROUTINE DISCHARGE Discharge Condition: FAIR Hospital Course: MR CANTRELL IS DOING GREAT, THE PAIN, ERYTHEMA AND TENDERNESS HAS IMPROVED BY 75% . 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 HE IS ADVISED NOT TO WALK BAREFOOT AND WEAR LARGE CROCS SO HE CAN HAVE VENTILATION. Vital Signs/Physical Exam: Temp Pulse Resp BP Pulse Ox 97.2 F 72 18 170/82 H 96 04/03/18 08:00 04/03/18 09:52 04/03/18 08:00 04/03/18 09:52 04/03/18 08:00 Laboratory Data at Discharge: WBC 9.5 K/uL (4.3-10.9) D 04/03/18 06:16 Hgb 14.6 g/dL (13.6-17.9) 04/03/18 06:16 Hct 43.7 % (39.6-49.0) 04/03/18 06:16 Plt Count 188 K/uL (152-406) 04/03/18 06:16 PT 13.2 SECONDS (9.5-12.5) H 04/02/18 15:05 INR 1.12 04/02/18 15:05 APTT 26.5 SECONDS (24.3-36.9) 04/02/18 15:05 Sodium 138 mEq/L (135-145) 04/03/18 06:16 Potassium 3.9 mEq/L (3.6-5.0) 04/03/18 06:16 BUN 26 mg/dL (6-20) H 04/03/18 06:16 Creatinine 1.03 mg/dL (0.61-1.24) 04/03/18 06:16 Glucose 133 mg/dL (65-120) H 04/03/18 06:16 Phosphorus 2.8 mg/dL (2.5-4.3) 04/02/18 15:05 Magnesium 2.3 mg/dL (1.8-2.5) 04/03/18 06:16 Total Bilirubin 1.2 mg/dL (0.3-1.2) 04/02/18 15:05 AST 24 IU/L (10-42) 04/02/18 15:05 ALT 20 IU/L (10-60) 04/02/18 15:05 Alkaline Phosphatase 53 IU/L (42-121) 04/02/18 15:05 Home Medications: Aspirin [Aspirin EC 81 MG] 81 mg PO DAILY 04/02/18 Empagliflozin/Metformin HCl [Synjardy 5-1,000 mg Tablet] 1 each PO BID 04/02/18 Fluticasone [Flonase 50MCG Nasal [place]*] 1 unit IH DAILY 04/02/18 Insulin Glargine,Hum.rec.anlog [Lantus Solostar] 26 unit SQ BEDTIME 04/02/18 Insulin Lispro [Humalog Kwikpen U-100] 8 unit SQ TIDWM 04/02/18 Losartan/Hydrochlorothiazide [Hyzaar 100-25 Tablet] 1 each PO DAILY 04/02/18 Nebivolol HCl [Bystolic*] 20 mg PO DAILY 04/02/18 Doxycycline Hyclate 100 mg PO BID #14 tablet 04/03/18 Smz./Tmp. [Bactrim Ds 800 MG/160 MG] 1 tab PO BID #14 tab 04/03/18 New Medications: Doxycycline Hyclate 100 mg PO BID #14 tablet Smz./Tmp. [Bactrim Ds 800 MG/160 MG] 1 tab PO BID #14 tab
[2018-04-03] MEDS ORDERED: VANCOMYCIN 2 GM in NA CHLORIDE 0.9% 500 ML IVPB SCH (15:00)
== END 2018-04-03 18:47 | disposition home or self-care (01) | DRG 603 ==
LOC: 4TH 13:59
PROVIDERS: ADMIT Internal Medicine; ATTEND Internal Medicine
DX: L03.115 Cellulitis of right lower limb (principal); B95.62 Methicillin resistant Staphylococcus aureus infection as the cause of diseases classified elsewhere; E11.40 Type 2 diabetes mellitus with diabetic neuropathy, unspecified
CPT/HCPCS: 36415; 71046; 80048; 80076; 81003; 81015; 82043; 82306; 82570; 82607; 82962; 83036; 83690; 83735; 84100; 84443; 85025; 85610; 85652; 85730; 87086; 87088; 93005; 93971; 96361; 96365; 99284; J0744; J1650; J3370; J7030

== ENCOUNTER 2018-06-01 07:39 | Emergency (ER) | payer OTHER, BC ==
--- OUTSIDE RECORDS SUMMARY | 2018-06-01 07:42 | XMS REPORT | Clinical Summary ---
:1950 Author Organization [facility] Address [address] [place] [address] Care Team Providers Name Role Phone Jaime [...] EVERY DAY 17 tablet IN THE MORNING hydroCHLOROthiazide Take 1 tablet by 02/17/20 Discontinued (HYDRODIURIL) 25 MG mouth daily. 17 017 tablet insulin GLARGINE Inject 26 Units 02/26/20 Discontinued (LANTUS SOLOSTAR) 100 under the skin 17 017 unit/mL injection (pen) nightly. losartan (COZAAR) 100 TAKE 1 TABLET BY 90 tablet 0 05/30/ Discontinued MG tablet MOUTH EVERY DAY 17 [...] Only Endocrinology Wilma Valenzuela MA 09/06/2017 Refill Endocrinology Ghulam Washington MD 09/05/2017 Refill Endocrinology Ghulam Washington MD 09/01/2017 Refill Endocrinology Ghulam Washington MD 08/30/2017 Refill Endocrinology Ghulam Washington MD 08/12/2017 Refill Ghulam Mora MD 06/30/2017 Hospital Encounter Plastic Surgery Maria Elena Manzo cell MD Ivan carcinoma 06/30/2017 Anesthesia Event Plastic Surgery Zeus Yang MD 06/30/2017 Refill Ghulam Mora MD 06/30/2017 Procedure Pass Plastic Surgery 06/30/2017 Surgery Plastic Surgery Maria Elena Manzo COMPLEX WOUND MD Ivan CLOSURE, TAKEDOWN OF PERIMEDIAN FOREHEAD FLAP; division of septal flap 2017 Patient Outreach Quality Savana Merritt, Gabbie 06/02/2017 - Hospital Encounter General Internal Maria Elena Manzo Basal cell 06/03/2017 Dominick Love MD carcinoma 06/02/2017 Anesthesia Event Plastic Surgery Zeus Yang MD 06/02/2017 Procedure Pass Plastic Surgery 06/02/2017 Surgery Plastic Surgery Maria Elena Manzo NASAL SEPTAL FLAPIvan MD PERIMEDIAN FOREHEAD FLAP after 05/31/2017 Immunizations Name Dates Previously Given Next Due [...] Health Maintenance Due Date Last Done Comments COLON CANCER SCREENING 1998 SHINGRIX VACCINE (#1) 1998 ZOSTER VACCINE 2008 PNEUMOCOCCAL POLYSACCHARIDE VACCINE AGE 65 AND OVER 2013 PNEUMOCOCCAL-13 2013 INFLUENZA VACCINE 07/01/2018 09/18/2016 Procedures Procedure Name Priority Date/Time Associated Comments Diagnosis POC GLUCOSE Routine 06/30/2017 10:27 Results for this AM CDT procedure are in the results section. OK AN ELECTIVE Routine 06/30/2017 8:03 ENDOTRACHEAL AIRWAY AM CDT Procedure Note - Callie Mckinney CRNA - 06/30/2017 8:01 AM CDT Airway Date/Time: 06/30/2017 7:40 AM Performed by: CALLIE MCKINNEY I Authorized by: ZEUS YANG Location: OR Urgency: Elective Performed by: resident/REMITTANCE CLERK and anesthesiologist Preoxygenated with 100% O2: Yes [...] First attempt Mac 3, Atraumatic, dentition unchanged CLOSURE, WOUND 06/30/2017 7:30 AM Basal cell CDT carcinoma POC GLUCOSE Routine 06/30/2017 6:41 AM Results for this CDT procedure are in the results section. POC GLUCOSE Routine 06/03/2017 7:30 AM Results for this CDT procedure are in the results section. POC GLUCOSE Routine 06/02/2017 8:51 PM Results for this CDT procedure are in the results section. POC GLUCOSE Routine 06/02/2017 5:13 PM Results for this CDT procedure are in the results section. POC GLUCOSE Routine 06/02/2017 2:07 PM Results for this CDT procedure are in the results section. POC GLUCOSE Routine 06/02/2017 12:40 PM Results for this CDT procedure are in the results section. POC GLUCOSE Routine 06/02/2017 10:50 AM Results for this CDT procedure are in the results section. POC GLUCOSE Routine 06/02/2017 9:41 AM Results for this CDT procedure are in the results section. SURGICAL PATHOLOGY Routine 06/02/2017 9:18 AM Results for this REQUEST CDT procedure are in the results section. OK AN ELECTIVE Routine 06/02/2017 8:58 AM ENDOTRACHEAL AIRWAY CDT Procedure Note - Jackie Sweet CRNA - 06/02/2017 8:57 AM CDT Airway Date/Time: 06/02/2017 8:29 AM Performed by: JACKIE SWEET Authorized by: ZEUS YANG Location: OR Urgency: Elective Anesthesiologist: ZEUS YANG Resident/REMITTANCE CLERK: JACKIE SWEET Preoxygenated with 100% O2: Yes [...] No Number of Attempts at Approach: 1 RHINOPLASTY 06/02/2017 8:00 AM CDT Basal cell carcinoma Case Notes POSSIBLE EXTENDED RECOVERY NEEDED, DR [place]CHELL [place] SURGEON (WORKING 1ST EST 1.5HR) Special Needs POSSIBLE EXTENDED RECOVERY NEEDED, DR [place]LL [place] SURGEON (WORKING 1ST EST 1.5HR) SEPTOPLASTY, NASAL 06/02/2017 8:00 AM CDT Basal cell carcinoma Case Notes POSSIBLE EXTENDED RECOVERY NEEDED, DR MIT[place]LL [place] SURGEON (WORKING 1ST EST 1.5HR) Special Needs POSSIBLE EXTENDED RECOVERY NEEDED, DR MIT[place]LL [place] SURGEON (WORKING 1ST EST 1.5HR) after 05/31/2017 Results POC glucose (06/30/2017 10:27 AM)Only the most recent of9 resultswithin the time period is included. POC glucose 173 (H) 65 - 99 mg/dL [facility] DEPARTMENT OF PATHOLOGY AND Comment: [facility] MEDICINE Meter ID: [id number] Pattern Clerk: Flavio Arnold Performing Organization Address City[facility] Phone Number [facility] DEPARTMENT OF PATHOLOGY AND [address] [place] [address] GENOMIC MEDICINE Surgical pathology request (06/02/2017 9:18 AM) [facility] DEPARTMENT OF PATHOLOGY AND GENOMIC MEDICINE Surgical pathology report See link below for PDF [facility] DEPARTMENT OF Lab Report PATHOLOGY AND GENOMIC MEDICINE Performing Organization Address City[facility] Phone Number [facility] DEPARTMENT OF PATHOLOGY AND [address] [place] [address] GENOMIC MEDICINE after 05/31/2017 Insurance Payer Benefit Plan / Group Subscriber ID Type Phone Address MEDICARE MEDICARE PART A AND B xxxxxxxxxx Medicare [place] BCBS BCBS CHOICE PPO/F[employer]ERAL EMPL PPO xxxxxxxxxxxx PPO Home: [address] [place] [phone] [place], [address] [place] [address] JEFF SWEENEY Personal/Family Self 1950 Home: [address] [place] [phone] [place] [place] [address]
[2018-06-01] MEDS ORDERED: levoFLOXacin 500 MG TAB ONE (08:43)
--- NOTE | 2018-06-01 08:50 | ER ---
Nurse's Notes [facility] Name: Jeff Sweeney Age: 67 yrs Sex: Male : 1950 Arrival Date: 06/01/2018 Time: 07:42 Bed 18 Private MD: Justin Vizcarra V Diagnosis: Puncture wound without foreign body, unspecified foot Presentation: 06/01 07:57 Presenting complaint: Patient states: stepped on nail last night, puncture wound to iw left foot, pt states would not stop bleeding, pt was wearing a boat shoe at the time, dressing in place, not bleeding at this time. Transition of care: patient was not received from another setting of care. Onset of symptoms was May 31, 2018. Risk Assessment: Do you want to hurt yourself or someone else? Patient reports no desire to harm self or others. Initial Sepsis Screen: Does the patient meet any 2 criteria? No. Patient's initial sepsis screen is negative. Does the patient have a suspected source of infection? No. Patient's initial sepsis screen is negative. Care prior to arrival: None. 07:57 Method Of Arrival: Wheelchair 07:57 Acuity: LAUREN 4 iw Historical: - Allergies: 07:59 PENICILLINS; iw - PMHx: 07:59 Diabetes - IDDM; Hypertension; iw - PSHx: 07:59 foot; skin cancer removed from nose; iw - Immunization history:: Last tetanus immunization: < 5 years ago. - Social history:: Smoking status: Patient/guardian denies using tobacco. Screenin:00 Abuse screen: Denies threats or abuse. Denies injuries from another. Nutritional jl7 screening: No deficits noted. Tuberculosis screening: No symptoms or risk factors identified. Fall Risk None identified. Assessment: 07:50 General: Appears in no apparent distress. comfortable. Pain: Denies pain. Neuro: Level jl7 of Consciousness is awake, alert, obeys commands, Oriented to person, place, time, situation. Cardiovascular: Patient's skin is warm and dry. Respiratory: Airway is patent Respiratory effort is even, unlabored, Respiratory pattern is regular, symmetrical. Derm: Skin is pink, warm \T\ dry. Injury Description: Puncture sustained to ball of left foot is gaping, was sustained 6-12 hours ago. 08:00 Reassessment: Pt reports his BP does normally increased when he's with healthcare jl7 providers. Provider notified of BP, no new orders received at this time. 08:50 Reassessment: No changes from previously documented assessment. Patient and/or family jl7 updated on plan of care and expected duration. Pain level reassessed. Patient is alert, oriented x 3, equal unlabored respirations, skin warm/dry/pink. Patient denies pain at this time. Vital Signs: 07:58 Pulse 69; Resp 16; Temp 98.0; Pulse Ox 98% on R/A; Weight 111.58 kg; Height 6 ft. iw (182.88 cm); Pain 0/10; 08:00 BP 196 / 92; Pulse 97; jl7 09:01 BP 187 / 84; Pulse 89; Resp 16; Pulse Ox 100% ; jl7 07:58 Body Mass Index 33.36 (111.58 kg, 182.88 cm) iw ED Course: 07:42 Patient arrived in ED. mr 07:43 Justin Vizcarra MD is Private Physician. mr 07:46 [facility]both[facility] jmm 07:46 Wilder San MD is Attending Physician. [facility] 07:58 Triage completed. iw 07:58 Arm band placed on. iw 08:00 Patient has correct armband on for positive identification. Bed in low position. Call jl7 light in reach. Side rails up X 1. Pulse ox on. NIBP on. 08:01 Maddie Arellano, RN is Primary Nurse. jl7 08:23 X-ray completed. Portable x-ray completed in exam room. jr1 08:25 Foot Left 3 View XRAY In Process Unspecified. EDMS 08:48 Justin Vizcarra MD is Referral Physician. [facility] 09:01 No provider procedures requiring assistance completed. Patient did not have IV access jl7 during this emergency room visit. Administered Medications: 08:43 Drug: LevaQUIN 500 mg Route: PO; jl7 09:01 Follow up: Response: No adverse reaction jl Outcome: 08:49 Discharge ordered by . jmm 09:01 Discharged to home ambulatory. jl7 09:01 Condition: stable 09:01 Discharge instructions given to patient, Instructed on discharge instructions, follow up and referral plans. medication usage, Demonstrated understanding of instructions, follow-up care, medications, Prescriptions given X 1. 09:02 Patient left the ED. jl7 Signatures: Dispatcher [employer] EDMS Jason Higginbotham PA PA jmm Rivera, Maria mr Ringgold, Jackie 1 Lennie Jarquin, Maddie Thakkar RN, RN RN jl7
--- NOTE | 2018-06-01 08:50 | EDPHYS ---
Physician Documentation [facility] Name: Jeff Sweeney Age: 67 yrs Sex: Male : 1950 Arrival Date: 06/01/2018 Time: 07:42 Bed 18 Private MD: Justin Vizcarra V ED Physician Wilder San HPI: 06/01 07:57 This 67 yrs old Male presents to ER via Unassigned with complaints of Stepped jmm on nail. 07:57 The patient presents with a penetrating injury. The complaints affect the ball of left jmm foot. Context: stepped on nail. Onset: The symptoms/episode began/occurred acutely, last night. Associated signs and symptoms: Pertinent positives: bleeding, Pertinent negatives: fever. This is a 67 year old male with a history of DM that presents to the ED with a puncture wound to the left foot. Patient states. He stepped on a nail, the nail went through his shoe. The wound bled immediately. Patient denies pain, fever, or noticeable swelling. Patient is UTD on tetanus immunization. . Historical: - Allergies: 07:59 PENICILLINS; iw - PMHx: 07:59 Diabetes - IDDM; Hypertension; iw - PSHx: 07:59 foot; skin cancer removed from nose; iw - Immunization history:: Last tetanus immunization: < 5 years ago. - Social history:: Smoking status: Patient/guardian denies using tobacco. ROS: 07:57 Constitutional: Negative for fever, chills, and weight loss. jmm 07:57 Constitutional: Negative for fever. 07:57 MS/extremity: Positive for injury or acute deformity, puncture. 07:57 Skin: Positive for puncture. 07:57 Neuro: Negative for weakness. 07:57 All other systems are negative. Exam: 07:57 Head/Face: atraumatic. jmm 07:57 Constitutional: The patient appears in no acute distress, alert, awake. Vital Signs: 07:58 Pulse 69; Resp 16; Temp 98.0; Pulse Ox 98% on R/A; Weight 111.58 kg; Height 6 ft. iw (182.88 cm); Pain 0/10; 08:00 BP 196 / 92; Pulse 97; jl7 09:01 BP 187 / 84; Pulse 89; Resp 16; Pulse Ox 100% ; jl7 07:58 Body Mass Index 33.36 (111.58 kg, 182.88 cm) MDM: 07:55 Patient medically screened. [facility] 08:47 Data reviewed: vital signs, nurses notes, radiologic studies, plain films. Counseling: leta I had a detailed discussion with the patient and/or guardian regarding: the historical points, exam findings, and any diagnostic results supporting the discharge/admit diagnosis, radiology results, the need for outpatient follow up, to return to the emergency department if symptoms worsen or persist or if there are any questions or concerns that arise at home. ED course: Patient will be prescribed oral antibiotics due to concerns for pseudamonas infection. The patient was advised of the risk of infection and the need for close follow up Patient given strict return precautions. The patient understood and agrees with the plan of care. . 08:47 ED course: Patient advised not to perform strenuous activity while one Levaquin due to [facility] risk of tendon rupture. . 06/01 07:56 Order name: Foot Left 3 View XRAY [facility] Administered Medications: 08:43 Drug: LevaQUIN 500 mg Route: PO; jl 09:01 Follow up: Response: No adverse reaction [facility] Disposition: 16:06 Co-signature as Attending Physician, Wilder San MD Available for consultation at [facility] all times. . Disposition: 06/01/18 08:49 Discharged to Home. Impression: Puncture wound without foreign body, unspecified foot. - Condition is Stable. - Discharge Instructions: Puncture Wound. - Prescriptions for Levaquin 500 mg Oral Tablet - take 1 tablet by ORAL route once daily for 7 days; 7 tablet. - Medication Reconciliation Form, Thank You Letter, Antibiotic Education, Prescription Opioid Use form. - Follow up: Justin Vizcarra MD; When: 2 - 3 days; Reason: Continuance of care. Signatures: Dispatcher [employer] EDMS Jason Higginbotham PA PA jmm Williams, Irene, RN RN iw Leal, Jahala, RN RN Wilder Espana MD MD ps1 Corrections: (The following items were deleted from the chart) 09:02 08:49 06/01/2018 08:49 Discharged to Home. Impression: Puncture wound without foreign [facility] body, unspecified foot. Condition is Stable. Forms are Medication Reconciliation Form, Thank You Letter, Antibiotic Education, Prescription Opioid Use. Follow up: Justin Vizcarra; When: 2 - 3 days; Reason: Continuance of care. leta
--- NOTE | 2018-06-01 09:34 | RAD REPORT ---
EXAM DESCRIPTION: RAD - Foot Left 3 View - 06/01/2018 8:28 am CLINICAL HISTORY: Foot pain, puncture wound COMPARISON: None. FINDINGS: No acute fracture. No dislocation or periosteal reaction. IP joint space narrowing is pres ent without spurring or erosive change. First MTP joint space narrowing present. There degenerative c hanges at the tarsal metatarsal articulations again without significant spurring in without erosive c omponent. Patient has an extremely small plantar spur. There are spurring or calcification changes at the Achilles insertion into the calcaneus. In the proximal shaft third metatarsal there is a 3.5 centimeter area of central cystic or lucent musa nge. Cortex is thinned but not disrupted laterally. There is an overall expansion of the proximal thi rd metatarsal. No periosteal reaction, soft tissue calcification or soft tissue mass evident. No comp arison imaging is available to establish stability. No indication of active symptoms. This could be a benign bone cyst. Chondromyxoid fibroma, enchondroma or possible giant cell tumor. No foreign body or air in the soft tissues. IMPRESSION: No foreign body or air in the soft tissues. No acute bone findings seen. Cystic expansile lesion in the proximal third metatarsal is present apparently asymptomatic. No prior imaging to establish stability. Differential considerations are detailed in the body of the report. Aggressive process is unlikely. A ny prior outside imaging the foot would be helpful to establish stability.
== END 2018-06-01 09:02 | disposition home or self-care (01) ==
LOC: ER 07:39
DX: S91.332A Puncture wound without foreign body, left foot, initial encounter (principal); W45.0XXA Nail entering through skin, initial encounter; Y93.9 Activity, unspecified; Y92.9 Unspecified place or not applicable; Z88.0 Allergy status to penicillin; Z85.828 Personal history of other malignant neoplasm of skin; I10 Essential (primary) hypertension
CPT/HCPCS: 99284